=== PATIENT | male | born 1995 | race Hispanic/Latino ===

== ENCOUNTER 2023-03-01 11:02 | Emergency (ER) | payer BC, SELFPAY ==
[2023-03-01] MEDS ORDERED: Acetaminophen 500 MG TAB ONE (11:53)
[2023-03-01] MEDS ORDERED: Ketorolac Tromethamine 30 MG/ML VIAL ONE (11:54)
== END 2023-03-01 12:00 | disposition home or self-care (01) ==
LOC: CSHERS 11:02
DX: M54.9 Dorsalgia, unspecified (principal); F17.210 Nicotine dependence, cigarettes, uncomplicated
CPT/HCPCS: 99283; J1885